=== PATIENT | male | born 1985 | race African-American/Black ===

== ENCOUNTER 2018-06-28 20:46 | Emergency (ER) | payer OTHER ==
[~2018-06-28] VITALS: Ht 175.3 cm; Wt 86.2 kg
[2018-06-28] MEDS ORDERED: KEFLEX500 M1 PO (22:00)
[2018-06-29 00:54] VITALS: BP 142/88
== END 2018-06-28 22:30 | disposition home or self-care (01) ==
LOC: ER 20:46
DX: S01.412A Laceration without foreign body of left cheek and temporomandibular area, initial encounter (principal); F17.210 Nicotine dependence, cigarettes, uncomplicated; W22.8XXA Striking against or struck by other objects, initial encounter; Y92.89 Other specified places as the place of occurrence of the external cause; Y93.89 Activity, other specified; Y99.8 Other external cause status

== ENCOUNTER 2019-02-08 15:10 | Emergency (ER) | payer OTHER ==
[~2019-02-08] VITALS: Ht 172.7 cm; Wt 104.3 kg
[~2019-02-08 15:10] MED LIST: KEFLEX500 M1 PO
[2019-02-08 16:19] VITALS: BP 132/74
== END 2019-02-08 16:15 | disposition home or self-care (01) ==
LOC: ER 15:10
DX: M79.641 Pain in right hand (principal); F17.210 Nicotine dependence, cigarettes, uncomplicated; V49.50XA Passenger injured in collision with unspecified motor vehicles in traffic accident, initial encounter; Y92.89 Other specified places as the place of occurrence of the external cause; Y93.89 Activity, other specified; Y99.8 Other external cause status